=== PATIENT | female | born 1955 | race Caucasian/White ===

== ENCOUNTER → 2018-06-12 | Outpatient (CLI) | payer MEDICARE ==
[~2018-06-12] MED LIST: REGADENOSON 0.4 MG/5 ML SYRINGE ONE
== END | disposition home or self-care (01) ==
LOC: CFH 13:10
PROVIDERS: ATTEND Internal Medicine
DX: R07.9 Chest pain, unspecified (principal)
CPT/HCPCS: 78452; 93017; A9502; J2785

== ENCOUNTER → 2018-09-22 | Outpatient (CLI) | payer MEDICARE | END | disposition home or self-care (01) | LOC: CFH 11:00 | PROVIDERS: ATTEND Registered Nurse | DX: Z12.2 Encounter for screening for malignant neoplasm of respiratory organs (principal); Z87.891 Personal history of nicotine dependence | CPT/HCPCS: G0297 ==

== ENCOUNTER 2019-09-03 13:41 | Outpatient (CLI) | payer MEDICARE ==
[~2019-09-03 13:41] MED LIST changes: +ERGO500017 PO; +HYDR-826 PO; +IBUP-1223 PO; +LEVO75TA5 PO; +NORT10CA PO; +OMEP20TA62 PO; -REGADENOSON 0.4 MG/5 ML SYRINGE ONE; +SERT100T32 PO; +SIMV40TA20 PO
[2019-09-03] MEDS ORDERED: SERT100T PO (14:58)
[2019-09-03] MEDS ORDERED: OXYC-302 PO (14:59)
[2019-09-03] MEDS ORDERED: NORT10CA PO (15:48)
== END 2019-09-03 23:59 | disposition home or self-care (01) ==
LOC: STAR 13:41
PROVIDERS: ATTEND Podiatrist Foot & Ankle Surgery
DX: Z01.818 Encounter for other preprocedural examination (principal)
CPT/HCPCS: 93005

== ENCOUNTER 2019-09-07 10:27 | Day surgery (SDC) | payer MEDICARE ==
[~2019-09-07] VITALS: Ht 157.5 cm; Wt 97.7 kg
[~2019-09-07 10:27] MED LIST changes: +OXYC-302 PO; +SERT100T PO
[2019-09-07 11:10] VITALS: BP 116/62
[2019-09-07] MEDS ORDERED: CHLORHEXIDINE 15 ML UDC ONE (11:16)
[2019-09-07] MEDS ORDERED: CHLORHEXIDINE 15 ML UDC MM ONE (11:30)
[2019-09-07] MEDS ORDERED: LIDOCAINE-MPF 1%, 2ML INFIL ONE (11:30)
[2019-09-07] MEDS ORDERED: BUPIVACAINE/PF 0.5% ONE (11:58)
[2019-09-07] MEDS ORDERED: LIDOCAINE 1%, 20ML ONE (11:58)
[2019-09-07] MEDS ORDERED: LACTATED RINGERS 1,000 ML IV SCH (12:00)
[2019-09-07] MEDS ORDERED: FENTANYL PF 100 MCG/2ML ONE ×2 (12:34→13:49)
[2019-09-07] MEDS ORDERED: MIDAZOLAM 1 MG/ML, 2ML ONE (12:34)
[2019-09-07] MEDS ORDERED: DEXAMETHASONE 4 MG/ML, 1ML ONE (12:39)
[2019-09-07] MEDS ORDERED: PROPOFOL 10 MG/ML, 20ML ONE (12:39)
[2019-09-07] MEDS ORDERED: CEFAZOLIN 1,000 MG ONE (12:39)
[2019-09-07] MEDS ORDERED: ONDANSETRON 2MG/ML, 2ML ONE (12:39)
[2019-09-07] MEDS ORDERED: ACETAMINOPHEN 325 MG TABLET PO PRN (13:30)
[2019-09-07] MEDS ORDERED: LABETALOL 5MG/ML, 20ML IV PRN (13:30)
[2019-09-07] MEDS ORDERED: OXYcodone 5 MG/5 ML ORAL.SOL UDC PO PRN (13:30)
[2019-09-07] MEDS ORDERED: hydrALAzine 20 MG/ML, 1ML IV PRN (13:30)
[2019-09-07] MEDS ORDERED: ONDANSETRON 2MG/ML, 2ML IVPush PRN (13:30)
[2019-09-07] MEDS: FENTANYL PF 100 MCG/2ML IV PRN ×2 (13:48→14:03)
[2019-09-07] MEDS ORDERED: HYDROmorphone 1 MG/ML, 1ML INJ ONE (13:49)
[2019-09-07] MEDS ORDERED: OXYcodone 5 MG/5 ML ORAL.SOL UDC ONE (13:49)
[2019-09-07] MEDS: HYDROmorphone 1 MG/ML, 1ML INJ IVPush PRN ×2 (13:54→14:01)
== END 2019-09-07 17:35 | disposition home or self-care (01) ==
LOC: EDSEX → OUT 10:27 → MERGE 12:30 → OUT 17:35
PROVIDERS: ATTEND Podiatrist Foot & Ankle Surgery
DX: S93.491A Sprain of other ligament of right ankle, initial encounter (principal); Z11.59 Encounter for screening for other viral diseases; G47.33 Obstructive sleep apnea (adult) (pediatric); M79.7 Fibromyalgia; K21.9 Gastro-esophageal reflux disease without esophagitis; F32.9 Major depressive disorder, single episode, unspecified; Z79.1 Long term (current) use of non-steroidal anti-inflammatories (NSAID); Z79.890 Hormone replacement therapy; Z79.891 Long term (current) use of opiate analgesic; Z79.899 Other long term (current) drug therapy; Z87.891 Personal history of nicotine dependence; Z88.2 Allergy status to sulfonamides; Z88.8 Allergy status to other drugs, medicaments and biological substances; Z99.81 Dependence on supplemental oxygen; W19.XXXA Unspecified fall, initial encounter; Y93.89 Activity, other specified; Y92.89 Other specified places as the place of occurrence of the external cause; Y99.8 Other external cause status
CPT/HCPCS: 27695; C1713; J0690; J1100; J1170; J2250; J2405; J2704; J3010; J7120; U0001

== ENCOUNTER → 2019-10-13 | Outpatient (CLI) | payer MEDICARE | END | disposition home or self-care (01) | LOC: CFH 10:08 | PROVIDERS: ATTEND Registered Nurse | DX: Z12.2 Encounter for screening for malignant neoplasm of respiratory organs (principal); J84.10 Pulmonary fibrosis, unspecified; Z87.891 Personal history of nicotine dependence | CPT/HCPCS: G0297 ==

== ENCOUNTER 2020-11-29 12:07 | Outpatient (CLI) | payer MEDICARE ==
[~2020-11-29 12:07] MED LIST changes: -OXYC-302 PO; +OXYC1TAB12 PO
== END 2020-11-29 23:59 | disposition home or self-care (01) ==
LOC: CFH 12:07
PROVIDERS: ATTEND Registered Nurse
DX: Z12.2 Encounter for screening for malignant neoplasm of respiratory organs (principal); J84.10 Pulmonary fibrosis, unspecified; Z87.891 Personal history of nicotine dependence
CPT/HCPCS: 71271